=== PATIENT | male | born 1985 | race African-American/Black ===

== ENCOUNTER 2019-02-10 12:58 | Emergency (ER) | payer SELFPAY ==
--- NOTE | 2019-02-10 13:33 | ER ---
Nurse's Notes [facility] Name: Charly Omalley Age: 33 yrs Sex: Male : 1985 Arrival Date: 02/10/2019 Time: 13:09 Bed 16 Private MD: Diagnosis: Other hemorrhoids Presentation: 02/10 13:09 Presenting complaint: Patient states: Patient noted small amount of blood on toilet aj paper after BM today at [facility], called 911. Ambulated in with steady gait. Transition of care: patient was not received from another setting of care. Onset of symptoms was February 10, 2019. Risk Assessment: Do you want to hurt yourself or someone else? Patient reports no desire to harm self or others. Initial Sepsis Screen: Does the patient meet any 2 criteria? No. Patient's initial sepsis screen is negative. Does the patient have a suspected source of infection? No. Patient's initial sepsis screen is negative. Care prior to arrival: None. 13:09 Method Of Arrival: EMS: [facility] 13:09 Acuity: MONIK 5 aj Triage Assessment: 13:09 General: Appears in no apparent distress. comfortable, Behavior is calm, cooperative, aj appropriate for age. Pain: Denies pain. Neuro: Level of Consciousness is awake, alert, obeys commands, Oriented to person, place, time, situation, Appropriate for age. Respiratory: Airway is patent Respiratory effort is even, unlabored, Respiratory pattern is regular, symmetrical. GI: Reports rectal bleeding. Derm: Skin is intact, is healthy with good turgor, Skin is pink, warm \T\ dry. normal. Historical: - Allergies: 13:42 No Known Allergies; aj - Home Meds: 13:42 None [Active]; aj - PMHx: 13:42 None; aj - PSHx: 13:42 None; aj - Immunization history:: Adult Immunizations up to date. - Social history:: Smoking status: Patient/guardian denies using tobacco. - Ebola Screening: : Patient negative for fever greater than or equal to 101.5 degrees Fahrenheit, and additional compatible Ebola Virus Disease symptoms Patient denies exposure to infectious person Patient denies travel to an Ebola-affected area in the 21 days before illness onset No symptoms or risks identified at this time. Screenin:43 Abuse screen: Denies threats or abuse. Denies injuries from another. Nutritional aj screening: No deficits noted. Tuberculosis screening: No symptoms or risk factors identified. Fall Risk None identified. Assessment: 13:41 Reassessment: Patient appears in no apparent distress at this time. No changes from aj previously documented assessment. Patient and/or family updated on plan of care and expected duration. Pain level reassessed. Patient is alert, oriented x 3, equal unlabored respirations, skin warm/dry/pink. Vital Signs: 13:09 BP 137 / 81; Pulse 91; Resp 19; Temp 98.4; Pulse Ox 100% on R/A; Weight 83.91 kg; aj Height 5 ft. 11 in. (180.34 cm); 13:09 Body Mass Index 25.80 (83.91 kg, 180.34 cm) aj ED Course: 13:09 Patient arrived in ED. aj 13:09 Arm band placed on left wrist. Patient placed in an exam room. aj 13:11 Triage completed. aj 13:18 David Leon PA is PHCP. cp 13:18 Herrera Chandler MD is Attending Physician. cp 13:32 Cesar Wood MD is Referral Physician. cp 13:41 Bobbi Shafer, RN is Primary Nurse. aj 13:42 No provider procedures requiring assistance completed. Patient did not have IV access aj during this emergency room visit. 13:43 Patient has correct armband on for positive identification. aj Administered Medications: No medications were administered Outcome: 13:33 Discharge ordered by MD. cp 13:43 Discharged to home ambulatory. aj 13:43 Condition: good 13:43 Discharge instructions given to patient, Instructed on discharge instructions, follow up and referral plans. Demonstrated understanding of instructions, follow-up care. 13:43 Patient left the ED. aj Signatures: Bobbi Shafer, RN RN David Lorenzo PA PA cp
--- NOTE | 2019-02-10 13:33 | EDPHYS ---
Physician Documentation [facility] Name: Charly Omalley Age: 33 yrs Sex: Male : 1985 Arrival Date: 02/10/2019 Time: 13:09 Bed 16 Private MD: ED Physician Herrera Chandler HPI: 02/10 13:26 This 33 yrs old Black Male presents to ER via EMS with complaints of Other, Rectal cp Bleeding. 13:26 The patient presents to the emergency department with bleeding from the rectum/anus, cp that is mild. Onset: The symptoms/episode began/occurred today. Context: the patient hard bowel movement. Associate signs and symptoms: Pertinent positives: constipation, Pertinent negatives: abdominal pain, diarrhea, dysuria, fever. The patient has not experienced similar symptoms in the past. Historical: - Allergies: 13:42 No Known Allergies; aj - Home Meds: 13:42 None [Active]; aj - PMHx: 13:42 None; aj - PSHx: 13:42 None; aj - Immunization history:: Adult Immunizations up to date. - Social history:: Smoking status: Patient/guardian denies using tobacco. - Ebola Screening: : Patient negative for fever greater than or equal to 101.5 degrees Fahrenheit, and additional compatible Ebola Virus Disease symptoms Patient denies exposure to infectious person Patient denies travel to an Ebola-affected area in the 21 days before illness onset No symptoms or risks identified at this time. ROS: 13:27 Constitutional: Negative for body aches, chills, fever, poor PO intake, weight loss. cp 13:27 Cardiovascular: Negative for chest pain. 13:27 Respiratory: Negative for cough. 13:27 Abdomen/GI: Positive for constipation, rectal bleeding, Negative for abdominal pain, diarrhea, anorexia, rectal pain. 13:27 : Negative for urinary symptoms. 13:27 Neuro: Negative for dizziness, syncope. 13:27 All other systems are negative. Exam: 13:29 Head/Face: Normocephalic, atraumatic. cp 13:29 Constitutional: The patient appears in no acute distress, alert, awake, comfortable, non-toxic, well developed, well nourished. 13:29 Eyes: Periorbital structures: appear normal, Conjunctiva: normal, Sclera: no appreciated abnormality, Lids and lashes: appear normal, bilaterally. 13:29 ENT: External ear(s): are unremarkable, Nose: is normal, Mouth: Lips: moist, Oral mucosa: moist, Posterior pharynx: Airway: no evidence of obstruction, patent. 13:29 Chest/axilla: Inspection: normal. 13:29 Cardiovascular: Rate: normal, Rhythm: regular. 13:29 Respiratory: the patient does not display signs of respiratory distress, Respirations: normal. 13:29 Abdomen/GI: Inspection: abdomen appears normal, Bowel sounds: active, all quadrants, Palpation: abdomen is soft and non-tender, in all quadrants, voluntary guarding, is not appreciated, involuntary guarding, is not appreciated. 13:29 : Rectal exam: Stool: brown, hemorrhoid(s), external, are present. Vital Signs: 13:09 BP 137 / 81; Pulse 91; Resp 19; Temp 98.4; Pulse Ox 100% on R/A; Weight 83.91 kg; aj Height 5 ft. 11 in. (180.34 cm); 13:09 Body Mass Index 25.80 (83.91 kg, 180.34 cm) aj MDM: 13:18 Patient medically screened. cp Administered Medications: No medications were administered Disposition: 02/10/19 13:33 Discharged to Home. Impression: Other hemorrhoids. - Condition is Stable. - Discharge Instructions: High-Fiber Diet, Hemorrhoids. - Medication Reconciliation Form, Thank You Letter, Antibiotic Education, Prescription Opioid Use form. - Follow up: Cesar Wood MD; When: 2 - 3 days; Reason: Worsening of condition. - Problem is new. - Symptoms are unchanged. Signatures: Bobbi Shafer RN RN David Lorenzo PA PA cp Corrections: (The following items were deleted from the chart) 13:43 13:33 02/10/2019 13:33 Discharged to Home. Impression: Other hemorrhoids. Condition is aj Stable. Forms are Medication Reconciliation Form, Thank You Letter, Antibiotic Education, Prescription Opioid Use. Follow up: Cesar Wood; When: 2 - 3 days; Reason: Worsening of condition. Problem is new. Symptoms are unchanged. cp
== END 2019-02-10 13:43 | disposition home or self-care (01) ==
LOC: ER 12:58
DX: K64.8 Other hemorrhoids (principal)